=== PATIENT | female | born 1960 | race Caucasian/White ===

== ENCOUNTER → 2017-07-13 | Outpatient (CLI) | payer OTHER | END | disposition home or self-care (01) | LOC: MAMMO 07:39 | DX: Z12.31 Encounter for screening mammogram for malignant neoplasm of breast (principal) | CPT/HCPCS: 77063; 77067 ==

== ENCOUNTER → 2019-02-18 | Outpatient (CLI) | payer OTHER ==
--- NOTE | 2019-02-18 14:59 | RAD ---
DATE: 02/18/2019 EXAM: MAMMO GÓMEZ SCREENING BILATERAL HISTORY: Routine screening COMPARISON: 02/17/2012 and 07/13/2017 mammographic exams This study was interpreted with the benefit of Computerized Aided Detection (CAD). Breast Density: SCATTERED The breast parenchyma shows scattered fibroglandular densities. Breast parenchyma level B. FINDINGS: Benign calcifications are present. No masses or distortion. IMPRESSION: Stable BI-RADS CATEGORY: 1 NEGATIVE RECOMMENDED FOLLOW-UP: 12M 12 MONTH FOLLOW-UP PQRS compliance statement: Patient information was entered into a reminder system with a target due date in one year for the next mammogram. Mammography is a sensitive method for finding small breast cancers, but it does not detect them all and is not a substitute for careful clinical examination. A negative mammogram does not negate a clinically suspicious finding and should not result in delay in biopsying a clinically suspicious abnormality. "Our facility is accredited by the [employer] Mammography Program."
== END | disposition home or self-care (01) ==
LOC: MAMMO 13:20
PROVIDERS: ATTEND Family Medicine
DX: Z12.31 Encounter for screening mammogram for malignant neoplasm of breast (principal); N64.89 Other specified disorders of breast
CPT/HCPCS: 77063; 77067

== ENCOUNTER → 2020-12-09 | Day surgery (SDC) | payer OTHER ==
[~2020-12-09] VITALS: Ht 157.5 cm; Wt 129.5 kg
[~2020-12-09] MED LIST: ASPI81TA59 PO; FLUT9.9S NS; LIDOCAINE 2% PF 5 ML VIAL. ONE; LISI1TAB20 PO; PROPOFOL 10 MG/ML (20ML) VIAL. IV ONE; SIMV10TA15 PO
[2020-12-09 07:27] VITALS: BP 127/60
[2020-12-09] MEDS: IV RINGERS,LACTATED 1000ML 1,000 ML IV ONE (07:35)
[2020-12-09 08:40] VITALS: BP 108/60
--- NOTE | 2020-12-09 09:04 | HP ---
ADMIT DATE: 12/09/2020 REFERRING PHYSICIAN: Dr. Laisha Mendes. REASON: Heme positive stool. HISTORY OF PRESENT ILLNESS: A 60-year-old female with past medical history significant for hypertension, hyperlipidemia, seen for heme-positive stools, has daily bowel movements without diarrhea or constipation. Colonoscopy in 2015 was unrevealing. FAMILY HISTORY: Significant for colon polyps with the mother. Weight and appetite are stable and she is otherwise without additional complaints. PAST MEDICAL HISTORY: Hypertension, hyperlipidemia. ALLERGIES: None. MEDICATIONS: Include aspirin, fluticasone, lisinopril, simvastatin. PAST SURGICAL HISTORY: Eye surgery, gallbladder surgery, hernia repair, hysterectomy, tubal ligation. FAMILY HISTORY: Breast cancer, colon polyps with her mother. Diabetes with her mother and sister, NE with her mother, hypertension in mother and sister. REVIEW OF SYSTEMS: Per records. PHYSICAL EXAMINATION: GENERAL: Reveals a well-nourished, well-developed female, alert, cooperative, no acute distress. VITAL SIGNS: Temperature 97.5, pulse 85, respiratory rate 20. LUNGS: Clear. CARDIAC: S1, S2, without S3, S4 or appreciable murmur. ABDOMEN: Soft abdomen, normal bowel sounds without appreciable hepatosplenomegaly. EXTREMITIES: Reveals no cyanosis, clubbing or edema. Multiple surgical incisions are noted. IMPRESSION AND PLAN: Heme positive stool, family history of colon polyps. Etiology is to be determined. Differential includes colon polyps, colon cancer, AVMs, IBD. Therefore, I recommend a colonoscopy. Risks and benefits of procedure including hemorrhage, perforation were discussed. The patient is willing to proceed at this time. KEVIN DR: Pantera TID: [id number]
== END | disposition home or self-care (01) ==
LOC: ENDOS 07:03
PROVIDERS: ATTEND Internal Medicine Gastroenterology
DX: R19.5 Other fecal abnormalities (principal); K64.0 First degree hemorrhoids; K57.30 Diverticulosis of large intestine without perforation or abscess without bleeding; K63.89 Other specified diseases of intestine; I10 Essential (primary) hypertension; E78.00 Pure hypercholesterolemia, unspecified; E11.9 Type 2 diabetes mellitus without complications; M19.90 Unspecified osteoarthritis, unspecified site; Z90.49 Acquired absence of other specified parts of digestive tract; Z98.51 Tubal ligation status; Z90.710 Acquired absence of both cervix and uterus; Z98.890 Other specified postprocedural states; Z79.82 Long term (current) use of aspirin; Z79.899 Other long term (current) drug therapy; Z87.891 Personal history of nicotine dependence; Z83.71 Family history of colonic polyps; Z82.49 Family history of ischemic heart disease and other diseases of the circulatory system; Z80.3 Family history of malignant neoplasm of breast; Z83.3 Family history of diabetes mellitus
CPT/HCPCS: 45378; J2704